=== PATIENT | male | born 1965 | race Caucasian/White ===

== ENCOUNTER → 2022-03-11 | Outpatient (CLI) | payer OTHER ==
--- NOTE | 2022-03-11 11:17 | P.SLEEP ---
History of Present Illness DATE: 03/11/2022 CONSULTATION/NEW PATIENT EVALUATION HISTORY OF PRESENT ILLNESS/SLEEP-WAKE EVALUATION: 56year old gentleman had b een evaluated in the sleep center for obstructive sleep apnea hypopnea syndrome. Patient has history of obstructive sleep apnea hypopnea syndrome for about 11 years she continued to use his CPAP equipment every night. No information about previous sleep studies are available. About 6 months ago she tried to repeat sleep study in another institution but he failed diagnostic polysomnogram because she was not able to sleep without CPAP. SLEEP SCHEDULE: Usually sleep schedule on weekdays 9 PM to 4 AM, during days off the same scheduled from 9 PM to 4 AM. FALLING ASLEEP: No problems with falling asleep. No TV in bedroom DURING SLEEP: During the sleep patient usually staying on the back position while using his CPAP she still has multiple awakenings from sleep. No nocturia during the night. Positive history of panic attack, dry mouth, grinding teeth, sleep talking. No history of hypnogogical hallucinations, sleep paralysis, or cataplexy. DURING THE DAY/WAKE STATE: In the morning patient wake up tired. His difficulties to put pretension, has problems with memory, concentration, irritability, depression, anxiety.. Nash sleepiness scale is 5. Usually patient doesn't take any naps. PAST MEDICAL HISTORY: Hypertension, acid reflux, sinusitis problems. PAST SURGICAL HISTORY: None MEDICATIONS: Patient does not remember clearly the names of medications. Possibly lisinopril and Ambien 5 mg at bedtime SOCIAL HISTORY: Positive for smoking 10 packs year quit 20 years ago , alcohol consumption occasional. FAMILY HISTORY: Hypertension, cancer. REVIEW OF SYSTEMS: Multiple awakenings while using CPAP equipment. No fevers. No double vision. No recent chest pain. No shortness of breath. No abdominal pain. No bleeding episodes. No blood in urine. No seizure episodes. PHYSICAL EXAMINATION: GENERAL: A pleasant patient without any distress. VITAL SIGNS: BP 117/73 , HR 69 , RR 16 , weight 262.4 pounds, height 6 foot one quarter inches, body mass index 35.3 . HEENT: PERRLA, EOMI. Evaluation of oropharynx showed tongue protrudes midline, low position of soft palate Mallampati 4. NECK: Supple. No JVD. Thyroid is not palpable. 20 inches in circumference. LUNGS: Clear to percussion and to auscultation. Good air exchange. No wheezing or rhonchi. HEART: S1, S2 regular. No murmurs, gallops or rubs. ABDOMEN: Soft and nontender. Bowel sounds are present. No organomegaly appreciated. EXTREMITIES: No clubbing or cyanosis. SENIOR TECH MANUFACTURING ENGINEERING: Awake, alert, and oriented x3. Cranial nerves 2 to 7 intact. There is no fasciculation or atrophy noted. No focal deficits observed. ASSESSMENT: 1. History of obstructive sleep apnea for 11 years. Extremely low position of soft palate Mallampati 4. Extremely wide neck 20 inches in circumference. No information available about previous sleep studies. Obstructive sleep apnea hypopnea syndrome. 2. Obesity body mass index 35.3. 3 hypertension. 4. Acid reflux. 5 Sinuses problems. PLAN: 1. Home sleep apnea test for evaluation of patient's breathing during sleep. 2. CPAP/BiPAP titration if sleep study confirms obstructive sleep apnea- hypopnea syndrome. 3. Preferable position during sleep on the side. 4. No driving if patient feels any sleepiness. Patient is aware of civil and criminal liability for unsafe driving. 5. Sleep hygiene with regular sleep time for at least 7.5-8 hours. 6. Watching weight. 7. Patient will need to get new Pap equipment and all necessary supplies. Sincerely, Ky aMckey MD, PhD, FAASM. Diplomat of [place] [employer], Sleep Medicine Board by [place] [employer] [place] [employer] Ophthalmology Assistant of [facility] [place] Sleep Note - Sleep Note Sleep Note: Temperature: Pulse Rate: Respiratory Rate: Blood Pressure: SpO2: Height: Weight: BMI: Neck Circumference:
== END ==
LOC: SLEEP 10:13
PROVIDERS: ATTEND Internal Medicine
DX: G47.33 Obstructive sleep apnea (adult) (pediatric) (principal); E66.9 Obesity, unspecified; Z68.35 Body mass index [BMI] 35.0-35.9, adult; I10 Essential (primary) hypertension; K21.9 Gastro-esophageal reflux disease without esophagitis; J34.9 Unspecified disorder of nose and nasal sinuses; Z87.891 Personal history of nicotine dependence
CPT/HCPCS: 99211

== ENCOUNTER → 2022-07-05 | Outpatient (CLI) | payer OTHER ==
--- NOTE | 2022-07-05 10:26 | XR ---
EXAMINATION TYPE: XR orbit detect foreign body DATE OF EXAM: 07/05/2022 COMPARISON: NONE HISTORY: Pre-MRI. History of metal injury to both eyes. TECHNIQUE: Orbits completed with Longoria and Yossi frontal and true lateral projection. FINDINGS: No suspicious metallic intraorbital foreign body identified to prevent MRI study. IMPRESSION: As above.
--- NOTE | 2022-07-05 10:31 | US ---
EXAMINATION TYPE: US carotid duplex BILAT DATE OF EXAM: 07/05/2022 COMPARISON: NONE CLINICAL HISTORY: G31.84 Mild cognitive impairment. Pt states severe headaches TECHNIQUE: Carotid duplex ultrasound examination. Indirect Doppler criteria was utilized. FINDINGS: EXAM MEASUREMENTS: RIGHT: Peak Systolic Velocity (PSV) cm/sec ----- Right CCA: 96.5 ----- Right ICA: 101.4 ----- Right ECA: 180.6 ICA/CCA ratio: 1.1 RIGHT: End Diastole cm/sec ----- Right CCA: 25.4 ----- Right ICA: 27.0 ----- Right ECA: 26.8 LEFT: Peak Systolic Velocity (PSV) cm/sec ----- Left CCA: 99.6 ----- Left ICA: 98.7 ----- Left ECA: 191.8 ICA/CCA ratio: 1.0 LEFT: End Diastole cm/sec ----- Left CCA: 23.7 ----- Left ICA: 37.9 ----- Left ECA: 28.2 VERTEBRALS (direction of flow): Right Vertebral: Antegrade Left Vertebral: Antegrade Rhythm: Normal MIXING HOUSE OPERATOR NOTES: No significant stenosis seen Cooper scale images show no significant focal plaque bilateral carotid bulb level. IMPRESSION: No hemodynamically significant stenosis in either internal carotid artery. Criteria for Assigning % of Stenosis / Diameter reduction (Estimation based on the indirect measurements of the internal carotid artery velocities (ICA PSV). 1. Normal (no stenosis)=ICA PSV < 125 cm/s: ratio < 2.0: ICA EDV<40 cm/s. 2. Less than 50% stenosis=ICA PSV < 125 cm/s: ratio < 2.0: ICA EDV<40 cm/s. 3. 50 to 69% stenosis=ICA PSV of 125 to 230 cm/s: ration 2.0 ? 4.0: ICA EDV 40-100 cm/s. 4. Greater than 70% stenosis to near occlusion= ICA PSV > 230 cm/s: ratio > 4.0: ICA EDV > 100 cm/s. 5. Near occlusion= ICA PSV velocities may be low or undetectable: variable ratio and ICA EDV. 6. Total occlusion=unable to detect flow.
--- NOTE | 2022-07-05 12:48 | MR ---
EXAMINATION TYPE: MR brain wo con DATE OF EXAM: 07/05/2022 COMPARISON: NONE HISTORY: Mild cognitive impairment TECHNIQUE: Multiplanar, multisequence imaging of the brain and brainstem is performed without IV cont rast. FINDINGS: Diffusion weighted images demonstrate no evidence of a recent infarct or other diffusion abnormality. There is mild ventricular and sulcal prominence. Mild scattered areas of T2 hyperintensity are seen t hroughout the white matter bilaterally. Lesions are nonspecific in appearance and distribution. T2 St ar weighted images show no suspicious intraparenchymal blood product. Midline structures demonstrate normal morphology. The craniocervical junction appears within normal limits. Normal vascular flow voids are present. Moderate mucosal thickening involving the ethmoid sin uses bilaterally. Mild to moderate mucosal thickening involving the inferior right maxillary sinus is partially imaged. The globes are intact bilaterally. IMPRESSION: Mild diffuse cerebral atrophy and chronic small vessel ischemic change. Chronic paranasal sinus disease noted as detailed above.
== END | disposition home or self-care (01) ==
LOC: RADUSWWP 09:33
PROVIDERS: ATTEND Psychiatry & Neurology Neurology
DX: Z13.89 Encounter for screening for other disorder (principal); I67.82 Cerebral ischemia; G31.9 Degenerative disease of nervous system, unspecified; J34.89 Other specified disorders of nose and nasal sinuses
CPT/HCPCS: 70030; 70551; 93880

== ENCOUNTER → 2022-08-19 | Outpatient (CLI) | payer OTHER ==
--- NOTE | 2022-08-19 13:55 | P.PN ---
Subjective DATE: 08/19/2022 FOLLOW UP VISIT. Patient with obstructive sleep apnea hypopnea syndrome return to sleep center for follow-up visit. Recently patient had sleep study which documented obstructive sleep apnea hypopnea syndrome. This is first visit with new CPAP equipment. Patient was able to use PAP equipment every night for the whole night. The patient does not have significant problems withPAP pressure and humidification. [place] sleepiness scale is 3, which is normal. I checked information from PAP unit. PAP unit pressure 8-11, average 9.9 cm H2O. Usage is 97 % for more then 4 hours, average 8 hours per night. Leak is high 62.4 l/m. Apnea Hypopnea Index is 1.3, which is normal. MEDICATIONS:1. Lisinopril 2. Ambien During physical exam: GENERAL: A pleasant patient without any distress. VITAL SIGNS: BP 138/82, HR 76, RR 16 , weight 267, temperature 97.6, oxygen sa turation at room air 97% . HEENT: PERRLA, EOMI.low position of soft palate, Mallapati 4 . NECK: Supple. No JVD. LUNGS: Clear to percussion and to auscultation. Good air exchange. No wheezing or rhonchi. HEART: S1, S2 regular. ABDOMEN: Soft and nontender. Obese EXTREMITIES: No clubbing or cyanosis. TRACK INSPECTING SUPERVISOR: Awake, alert, and oriented x3. No focal deficit. Impressions: 1. Obstructive sleep apnea-hypopnea syndrome. Patient demonstrated great compliance with treatment, benefiting from treatment. High leak from the mask. 2. Obesity. 3. Hypertension. 4. Acid reflux. 5. History of sinuses problems. Plan: 1. Continue using PAP equipment every night for the whole night. I teach patient how to regulate temperature in humidifier. 2. To change air filter at least 1-2 times per month. 3. PAP unit should stay lower then position of the head. 4. Advised patient to remove all remaining water from humidifier canister daily and make it dry after each usage. Refill canister with fresh distilled water before each usage. 5. Sleep hygiene with regular time in bed for at least 8 hours. 6. Precautions related to driving. No driving if feel any sleepiness. 7. I will maintain prescription for PAP supplies including mask, tube, filters. We will consider to change mask too different size. 8. Follow up visit in 6 months or earlier if patient has any problems. 9. Watching and losing weight. Thank you very much for allowing me to participate in the management of your patient. Ky Mackey MD, PhD, FAASM. Diplomat of [place] [employer], Sleep Medicine Board by [place] [employer] Barrel Handler of [facility] [place]
== END ==
LOC: SLEEP 13:12
PROVIDERS: ATTEND Internal Medicine
DX: G47.33 Obstructive sleep apnea (adult) (pediatric) (principal); E66.9 Obesity, unspecified; I10 Essential (primary) hypertension; K21.9 Gastro-esophageal reflux disease without esophagitis; Z99.89 Dependence on other enabling machines and devices; Z87.09 Personal history of other diseases of the respiratory system
CPT/HCPCS: 99212

== ENCOUNTER → 2023-04-27 | Outpatient (CLI) | payer OTHER ==
--- NOTE | 2023-04-27 12:44 | P.PN ---
Subjective DATE: 04/27/2023 FOLLOW UP VISIT. Patient with obstructive sleep apnea hypopnea syndrome return to sleep center for follow-up visit. Information from previous visit have been reviewed. Patient is using PAP equipment every night for the whole night, getting PAP supplies in time. The patient does not have significant problems with the mask, PAP unit and humidification. Agenda sleepiness scale is 5 which is normal. I checked information from PAP unit. PAP unit pressure 8-11 cm H2O. Usage is 100 % for more then 4 hours, average 7.5 hours per night. Leak is increased to 37.4 l/m, patient needs mask replacement. Apnea Hypopnea Index is 1.3, which is normal. MEDICATIONS:1. Lisinopril 2. Omeprazole 3. Simvastatin 4. Fluoxetine 5. Bupropion 6. Fluticasone 7. Flomax During physical exam: GENERAL: A pleasant patient without any distress. VITAL SIGNS: BP 118/76, HR 69, RR 14 , weight 260.0, temperature 97.4, oxygen saturation at room air 97 % . HEENT: PERRLA, EOMI.low position of soft palate, Mallapati 4 . NECK: Supple. No JVD. LUNGS: Clear to percussion and to auscultation. Good air exchange. No wheezing or rhonchi. HEART: S1, S2 regular. ABDOMEN: Soft and nontender. Slightly obese EXTREMITIES: No clubbing or cyanosis. DESK CLERKS SUPERVISOR: Awake, alert, and oriented x3. No focal deficit. Impressions: 1. Obstructive sleep apnea-hypopnea syndrome. Patient demonstrated great compliance with treatment, benefiting from treatment. 2. Mild obesity, BMI 35.2. 3. Hypertension. 4. Acid reflux. 5. Hyperlipidemia. 6. BPH. 7. History of depression. Plan: 1. Continue using PAP equipment every night for the whole night. 2. To change air filter at least 1-2 times per month. 3. PAP unit should stay lower then position of the head. 4. Advised patient to remove all remaining water from humidifier canister daily and make it dry after each usage. Refill canister with fresh distilled water before each usage. 5. Sleep hygiene with regular time in bed for at least 8 hours. 6. Precautions related to driving. No driving if feel any sleepiness. 7. I will maintain prescription for PAP supplies including mask, tube, filters. 8. Watching and losing weight. 9. Follow up visit in 6 months or earlier if patient has any problems. Thank you very much for allowing me to participate in the management of your patient. Ky Mackey MD, PhD, FAASM. Diplomat of [place] [employer] Medicine, Sleep Medicine Board by [place] [employer] Linux Developer of [facility] [place]
== END ==
LOC: 3 N SLEEP 11:15
PROVIDERS: ATTEND Internal Medicine
DX: G47.33 Obstructive sleep apnea (adult) (pediatric) (principal); E66.9 Obesity, unspecified; E78.5 Hyperlipidemia, unspecified; F32.A Depression, unspecified; I10 Essential (primary) hypertension; K21.9 Gastro-esophageal reflux disease without esophagitis; N40.0 Benign prostatic hyperplasia without lower urinary tract symptoms; Z68.35 Body mass index [BMI] 35.0-35.9, adult; Z99.89 Dependence on other enabling machines and devices; Z79.899 Other long term (current) drug therapy
CPT/HCPCS: 99212

== ENCOUNTER → 2024-06-11 | Outpatient (CLI) | payer OTHER ==
--- NOTE | 2024-06-11 12:12 | XR ---
EXAMINATION TYPE: XR shoulder complete 3 views RT, XR humerus 2 views RT, XR Hip Complete 2 views RT DATE OF EXAM: 06/11/2024 Comparison: None Clinical History: 58-year-old male slipped and fall with L shoulder, upper arm, hip pain Findings: Right shoulder: Overlying soft tissue swelling. Moderate change AC joint with joint space narrowing and marginal spur ring. Subacromial space is preserved. Mild degenerative spurring glenohumeral joint noted. No acute f racture, subluxation, dislocation. Right humerus: No elbow joint effusion. No acute fracture of the more mid to distal humerus identified. Right hip: Mild marginal spurring at the right hip but with relative preservation of joint space. No acute fract ure, subluxation, or dislocation seen. Impression: 1. Right shoulder: Moderate AC joint OA. Inferior spurring may contribute to subacromial impingement. Some overlying soft tissue swelling suggests soft tissue contusion. No acute osseous abnormality see n. If symptoms persist, MRI can be considered. Mild degenerative change at the glenohumeral joint. 2. Right humerus: No acute osseous injury seen. 3. Right hip: No acute osseous abnormality seen. [facility], , 06/11/2024 12:09 PM
== END | disposition home or self-care (01) ==
LOC: RADXRMAIN 11:15
PROVIDERS: ATTEND Emergency Medicine
CPT/HCPCS: 73502

== ENCOUNTER → 2024-06-14 | Outpatient (CLI) | payer OTHER ==
--- NOTE | 2024-06-14 12:59 | CT ---
EXAMINATION TYPE: CT brain cspine wo con CT DLP: 196 mGycm, Automated exposure control for dose reduction was used. DATE OF EXAM: 06/14/2024 12:48 PM COMPARISON: MRI brain 07/05/2022. CLINICAL INDICATION:Male, 58 years old with history of S13.4XXD S23.3XXD R20.9 S33.5XXD; fall 1 week ago TECHNIQUE: Brain: Multiple axial CT images of the brain were obtained without IV contrast. Cspine: Axial CT images from the skull base to the inferior aspect of T2 we obtained without intraven ous contrast. Coronal and sagittal reformatted images were also reviewed. FINDINGS: Brain: Extra-axial spaces: No abnormal extra-axial fluid collections. Ventricular system: Within normal limits Cerebral parenchyma: No acute intraparenchymal hemorrhage or mass effect. The bobby-white junction is well differentiated. Scattered hypoattenuating areas are seen within the periventricular white matte r. Cerebellum: Unremarkable. Mass effect: No evidence of midline shift. Intracranial vasculature: Atherosclerotic calcifications of the intracranial vessels including the le ft MCA. Soft tissues: Right scalp upper posterior scalp small contusions. Calvarium/osseous structures: No depressed skull fracture. Paranasal sinuses and mastoid air cells: The mastoid air cells are clear. Moderate mucosal thickening of the bilateral sphenoid, right maxillary, and ethmoid sinuses. Visualized orbits: Orbital contents are intact. Cervical spine: Fracture: None. Osseous structures: Multilevel degenerative disc disease changes with endplate spurring and disc oste ophyte complex's. Vertebral alignment: Within normal limits. Spinal canal/Neural Foramina: Disc osteophyte complexes at C3-C4 and C6-C7 with at least mild spinal canal stenosis. Facet joint uncovertebral joint arthropathy scattered throughout the cervical spine w ith varying degrees of neural foraminal stenosis. Neck soft tissues: Prevertebral soft tissues are within normal limits. Secretions identified within t he left nasopharynx. Bilateral palatine tonsils. Other: The airway is patent. The lung apices are clear. IMPRESSION: 1. No acute intracranial process. 2. Nonspecific white matter changes, likely secondary to chronic small vessel ischemic disease. 3. Right scalp upper posterior scalp small contusions. 4. No evidence of cervical spine fracture. 5. Mild multilevel degenerative disc disease. 6. Paranasal sinus disease. [facility], , 06/14/2024 12:57 PM
--- NOTE | 2024-06-14 13:26 | XR ---
EXAMINATION TYPE: XR thoracic spine complete DATE OF EXAM: 06/14/2024 CLINICAL HISTORY: pain TECHNIQUE: Frontal, lateral, and swimmer's view of thoracic spine are obtained. COMPARISON: None. FINDINGS: Thoracic spine show satisfactory alignment without evidence of acute fracture or dislocatio n. Vertebral body heights are preserved. Mild degenerative disc disease seen in various levels. Vi sualized ribs are unremarkable. IMPRESSION: No acute fracture or dislocation is seen in the thoracic spine. ICD 10 NO FRACTURE, INIT IAL EVALUATION [facility], , 06/14/2024 1:24 PM
--- NOTE | 2024-06-14 13:27 | XR ---
EXAMINATION TYPE: XR lumbar spine 2 or 3V DATE OF EXAM: 06/14/2024 CLINICAL HISTORY: pain TECHNIQUE: Three views of the lumbar spine are submitted. COMPARISON: None. FINDINGS: There are 5 lumbar type vertebral bodies identified. The lumbar spine shows satisfactory alignment w ithout evidence of acute fracture or dislocation. Vertebral body heights are within normal limits. Moderate multilevel degenerative disc space narrowing facet joint arthropathy. The overlying soft ti ssue appears unremarkable. IMPRESSION: No acute fracture or dislocation is seen in the lumbar spine. ICD 10 NO FRACTURE, INITIAL EVALUATION [facility], , 06/14/2024 1:25 PM
== END | disposition home or self-care (01) ==
LOC: RADCTMAIN 12:15
PROVIDERS: ATTEND Emergency Medicine
CPT/HCPCS: 70450; 72072; 72100; 72125

== ENCOUNTER → 2024-06-26 | Outpatient (CLI) | payer OTHER ==
--- NOTE | 2024-06-27 19:28 | MR ---
EXAMINATION TYPE: MR lumbar spine wo con DATE OF EXAM: 06/26/2024 8:53 PM COMPARISON: None. CLINICAL INDICATION: Male, 58 years old with history of S33.5XXD SPRAIN OF LIGAMENTS OF LUMBAR SPINE, SUBS, low back pain down both legs, fell at work on right side. neck and shoulder pain. TECHNIQUE: Multiplanar, multisequence images of the lumbar spine were acquired. IV Contrast: 0 mL Gadobutrol (None, if empty) FINDINGS: Cord ends at the T12 level. Tarlov cysts are present posterior to the S2 level L5-S1: No focal disc herniation or significant disc bulge. No spinal canal stenosis. Neural foramen are patent. Facet hypertrophy is present. Ligamentum flavum laxity is present. No spinal canal sten osis or neural foraminal stenosis is present. L4-L5: Facet hypertrophy and ligamentum flavum laxity are present with posterior lateral thecal sac i mpression. Broad-based disc bulge has anterior thecal sac flattening. No AP spinal canal stenosis is present. Some lateral canal narrowing should be considered. Neural foramen are patent. L3-L4: Appears be a small subtle broad base left paracentral disc herniation with extension beyond th e L4 endplate. This has mild to moderate anterior thecal sac compression. Facet hypertrophy and ligam entum flavum laxity are present with some mild posterior lateral thecal sac compression. Neural tirso en are patent. L2-L3: Disc space narrowing is present. Residual disc bulge has anterior thecal sac contact. Some fac et hypertrophy is present. Neural foramen are patent. L1-L2: No focal disc herniation or significant disc bulge. No spinal canal stenosis. Neural foramen are patent. T12-L1: No focal disc herniation or significant disc bulge. No spinal canal stenosis. Neural forame n are patent. IMPRESSION: 1. Facet hypertrophy and ligamentum flavum laxity present L3-4 through L5-S1. 2. Broad-based disc bulge in conjunction with the facet hypertrophy at L4-5 contributing to some late ral canal narrowing. 3. Subtle left paracentral disc herniation with mild to moderate anterior thecal sac compression at L 3-4. [facility], , 06/27/2024 7:26 PM
== END | disposition home or self-care (01) ==
LOC: RADMRIMAIN 19:32
PROVIDERS: ATTEND Emergency Medicine
DX: S33.5XXD Sprain of ligaments of lumbar spine, subsequent encounter (principal); M47.816 Spondylosis without myelopathy or radiculopathy, lumbar region
CPT/HCPCS: 72148

== ENCOUNTER → 2024-07-25 | Outpatient (CLI) | payer OTHER ==
--- NOTE | 2024-07-25 22:05 | MR ---
EXAMINATION TYPE: MR brain wo con DATE OF EXAM: 07/25/2024 COMPARISON: MRI brain July 05, 2022. CT brain June 14, 2024 HISTORY: Headaches, Rt side facial numbness and in arms/legs, Forgetfulness, Injury fell, O rder states Post-concussional syndrome also TECHNIQUE: Multiplanar, multisequence imaging of the brain and brainstem is performed without IV cont rast. FINDINGS: Diffusion weighted images demonstrate no evidence of a recent infarct or other diffusion abnormality. There is mild ventricular and sulcal prominence redemonstrated. A few tiny foci of T2 hyperintensity are again seen scattered throughout the white matter bilaterally. Approximately 10-15 tiny lesions ar e redemonstrated. T2 Star weighted images show no suspicious intraparenchymal blood product. Midline structures redemonstrate normal morphology. The craniocervical junction remains within moira l limits. Normal vascular flow voids are present. Moderate mucosal thickening right maxillary sinus w ith some patchy posterior fluid. Moderate mucosal thickening bilateral ethmoid sinuses. Mild to moder ate mucosal thickening right sphenoid sinus. The globes are intact bilaterally. IMPRESSION: Stable mild diffuse age-related cerebral atrophy and chronic small vessel ischemic change . Paranasal sinus disease is again seen as detailed above. [facility], , 07/25/2024 10:03 PM
== END | disposition home or self-care (01) ==
LOC: RADMRIMAIN 06-25 21:45
PROVIDERS: ATTEND Physical Medicine & Rehabilitation
DX: F07.81 Postconcussional syndrome (principal); G44.319 Acute post-traumatic headache, not intractable; G31.89 Other specified degenerative diseases of nervous system
CPT/HCPCS: 70551